=== PATIENT | female | born 1970 | race African-American/Black ===

== ENCOUNTER 2016-06-27 14:29 | Inpatient (IN) | payer MEDICAID, MEDICARE ==
[~2016-06-27] VITALS: Ht 175.3 cm; Wt 103.2 kg
[~2016-06-27 14:29] MED LIST: ALBU8HFA IH; ASPI-556 PO; CARI350 PO; CLON2 PO; HYDR-3971 PO; OXYC5 PO; PREG50 PO; SUMA25TA9 PO
[2016-06-27] MEDS ORDERED: IOVERSOL 350 MG/ML 100 ML VIAL ONE (14:36)
[2016-06-27] MEDS ORDERED: SODIUM CHLORIDE 0.9% 100 ML ONE (14:36)
[2016-06-27 14:52] LABS: BASOPHILS % (AUTO) 0.4 % (0.0-2.0); EOSINOPHILS % (AUTO) 5.3 % (1.0-6.0); LYMPHOCYTES # (AUTO) 5.3 K/uL (1.0-4.8); LYMPHOCYTES % (AUTO) 50.1 % (22.0-44.0); MEAN CORPUSCULAR HGB CONC 32.6 G/dL (31.0-37.0); MEAN CORPUSCULAR VOLUME 92 fL (80-100); MONOCYTES # (AUTO) 1.1 K/uL (0.1-1.0); MONOCYTES % (AUTO) 10.4 % (2.0-9.0); NEUTROPHILS # (AUTO) 3.6 K/uL (1.8-7.7); NEUTROPHILS % (AUTO) 33.8 % (40.0-70.0); PLATELET COUNT (AUTO) 259 K/uL (150-450); RED BLOOD CELL COUNT(AUTO) 4.35 MIL/uL (4.00-5.20); RED CELL DISTRIBUTION WIDTH 13.7 % (11.5-14.5); WHITE BLOOD COUNT (AUTO) 10.6 K/uL (4.5-11.0)
[2016-06-27 15:00] LABS: PROTHROMBIN TIME 10.3 SEC (9.4-11.6)
[2016-06-27] MEDS ORDERED: TOPI25 PO (15:00)
[2016-06-27] MEDS ORDERED: HYDR25TA PO (15:00)
[2016-06-27] MEDS ORDERED: HYD25 PO (15:00)
[2016-06-27 15:21] LABS: ANION GAP 10 mmol/L (8-16); CALCIUM, TOTAL 8.8 mg/dL (8.8-10.5); CARBON DIOXIDE 29 mmol/L (22-29); CHLORIDE 102 mmol/L (98-107); CREATININE 1.01 mg/dL (0.60-1.30); GLOMERULAR FILTR. RATE CALC > 60 mL/min (>60); POTASSIUM 3.2 mmol/L (3.5-5.1); SODIUM SERUM 141 mmol/L (136-145); UREA NITROGEN, BLOOD 16 mg/dL (7-18)
[2016-06-27 15:47] LABS: ALANINE AMINOTRANSFERASE 32 U/L (12-78); ALBUMIN 4.1 g/dL (3.4-5.0); ASPARTATE AMINOTRANSFERASE 20 U/L (15-37); BILIRUBIN,TOTAL 0.4 mg/dL (0.1-1.0); CREATINE KINASE, TOTAL 346 U/L (26-192); TOTAL PROTEIN, SERUM 7.3 g/dL (6.4-8.2)
[2016-06-27] MEDS ORDERED: ONDANSETRON HCL 4 MG/2 ML VIAL IVP ONE (16:45)
[2016-06-27] MEDS ORDERED: HYDROmorphone 2 MG/ML SYRINGE IVP ONE ×2 (16:45→18:45)
[2016-06-27] MEDS ORDERED: SUMA100T PO (16:55)
[2016-06-27] MEDS ORDERED: OXYC10IR PO (16:56)
[2016-06-27] MEDS ORDERED: SODIUM CHLORIDE 0.9% 1,000 ML IV ONE (17:00)
[2016-06-27] MEDS ORDERED: ASPIRIN 300 MG RECTAL SUPPOSITORY PR ONE (18:00)
[2016-06-27] MEDS ORDERED: SUMAtriptan SUCCINATE 6 MG/0.5 ML VIAL SQ ONE (20:30)
[2016-06-27] MEDS ORDERED: MAGNESIUM HYDROXIDE SUSPENSION 30 ML UDCUP PO PRN (20:45)
[2016-06-27] MEDS ORDERED: ACETAMINOPHEN 325 MG TABLET PO PRN (20:45)
[2016-06-27] MEDS: DOCUSATE SODIUM 100 MG CAPSULE PO SCH (20:49)
[2016-06-27] MEDS: SIMVASTATIN 40 MG TABLET PO SCH (21:00)
[2016-06-27] MEDS ORDERED: POTASSIUM CHL 10 MEQ/WATER 50 ML IV PRN (21:00)
[2016-06-27] MEDS ORDERED: POTASSIUM CHLORIDE 20 MEQ ER TABLET PO PRN (21:00)
[2016-06-27] MEDS ORDERED: GADOBUTROL 1 MMOL/ML 10 ML VIAL IVP ONE (21:15)
[2016-06-27] MEDS ORDERED: LORazepam 2 MG/ML VIAL ONE (21:22)
[2016-06-27] MEDS ORDERED: LORazepam 2 MG/ML VIAL IVP ONE (21:45)
[2016-06-27] MEDS: HEPARIN SODIUM,PORCINE 5,000 UNITS/ML VIAL SQ SCH (23:56)
[2016-06-28] MEDS: HYDROmorphone 2 MG/ML SYRINGE IVP SCH ×6 (01:32→23:50)
[2016-06-28] MEDS: HEPARIN SODIUM,PORCINE 5,000 UNITS/ML VIAL SQ SCH ×3 (08:26→23:49)
[2016-06-28] MEDS ORDERED: ASPIRIN 325 MG TABLET PO SCH (09:00)
[2016-06-28] MEDS: PANTOPRAZOLE SODIUM 40 MG DR TABLET PO SCH (09:24)
[2016-06-28 09:38] VITALS: BP 108/74
[2016-06-28] MEDS ORDERED: ADDE10 PO (13:43)
[2016-06-28] MEDS ORDERED: ALBU8HFA4 IH (13:43)
[2016-06-28] MEDS ORDERED: NAPR500T6 PO (13:43)
[2016-06-28] MEDS: HYDROCHLOROTHIAZIDE 25 MG TABLET PO SCH (14:45)
[2016-06-28] MEDS ORDERED: SUMAtriptan SUCCINATE 100 MG TABLET PO PRN (14:45)
[2016-06-28] MEDS ORDERED: OxyCODONE HCL 10 MG IR TABLET PO PRN (14:45)
[2016-06-28] MEDS: ClonazePAM 0.5 MG TABLET PO SCH ×2 (14:45→22:22)
[2016-06-28] MEDS ORDERED: HYDROCODONE/ACETAMINOPHEN 10-325 MG TABLET PO PRN (14:45)
[2016-06-28] MEDS ORDERED: ALBUTEROL SULFATE HFA 90 MCG/PUFF 8 GM INHALER IH PRN (14:45)
[2016-06-28] MEDS ORDERED: MORPHINE SULFATE 2 MG/ML SYRINGE ONE (14:49)
[2016-06-28] MEDS: OxyCODONE HCL/ACETAMINOPHEN 5-325 MG TABLET PO PRN (16:36)
[2016-06-28 18:05] VITALS: BP 113/78
[2016-06-28] MEDS: DOCUSATE SODIUM 100 MG CAPSULE PO SCH ×2 (20:20→21:00)
[2016-06-28] MEDS: AMPHETAMINE/DEXTROAMPHETAMINE 10 MG TABLET PO SCH (20:24)
[2016-06-28] MEDS: HydrOXYzine HCL 25 MG TABLET PO SCH (21:56)
[2016-06-28 23:14] VITALS: BP 111/67
[2016-06-28] MEDS: SIMVASTATIN 40 MG TABLET PO SCH (23:43)
[2016-06-29] MEDS ORDERED: INFLUENZA VIRUS VACCINE QVS 2016-17 (3YR+)/PF 60 MCG/0.5 ML SYRINGE IM ONE (02:15)
[2016-06-29] MEDS ORDERED: PNEUMOCOCCAL VACCINE POLYVALENT 0.5 ML VIAL [PPSV23] IM ONE (02:15)
[2016-06-29] MEDS: HYDROmorphone 2 MG/ML SYRINGE IVP SCH ×5 (04:29→23:54)
[2016-06-29 04:47] VITALS: BP 113/70
[2016-06-29 07:21] LABS: ANION GAP 4 mmol/L (8-16); CALCIUM, TOTAL 8.5 mg/dL (8.8-10.5); CARBON DIOXIDE 32 mmol/L (22-29); CHLORIDE 105 mmol/L (98-107); CREATININE 0.95 mg/dL (0.60-1.30); GLOMERULAR FILTR. RATE CALC > 60 mL/min (>60); POTASSIUM 4.2 mmol/L (3.5-5.1); SODIUM SERUM 141 mmol/L (136-145); UREA NITROGEN, BLOOD 10 mg/dL (7-18)
[2016-06-29 07:33] VITALS: BP 110/71
[2016-06-29] MEDS: HEPARIN SODIUM,PORCINE 5,000 UNITS/ML VIAL SQ SCH ×2 (08:43→23:54)
[2016-06-29] MEDS: ClonazePAM 0.5 MG TABLET PO SCH ×2 (08:44→19:59)
[2016-06-29] MEDS: HYDROCHLOROTHIAZIDE 25 MG TABLET PO SCH (08:44)
[2016-06-29] MEDS: PANTOPRAZOLE SODIUM 40 MG DR TABLET PO SCH (08:44)
[2016-06-29] MEDS: DOCUSATE SODIUM 100 MG CAPSULE PO SCH ×2 (08:44→19:58)
[2016-06-29] MEDS: ASPIRIN 81 MG EC TABLET PO SCH (08:44)
[2016-06-29] MEDS: AMPHETAMINE/DEXTROAMPHETAMINE 10 MG TABLET PO SCH ×2 (08:45→19:59)
[2016-06-29] MEDS: HydrOXYzine HCL 25 MG TABLET PO SCH ×2 (08:45→19:58)
[2016-06-29 11:57] VITALS: BP 111/69
[2016-06-29 16:08] VITALS: BP 104/66
[2016-06-29 19:39] VITALS: BP 109/69
[2016-06-29] MEDS: SIMVASTATIN 40 MG TABLET PO SCH (19:58)
[2016-06-30 00:15] VITALS: BP 104/62
[2016-06-30] MEDS: HYDROmorphone 2 MG/ML SYRINGE IVP SCH ×4 (04:21→16:00)
[2016-06-30 04:43] VITALS: BP 97/59
[2016-06-30 07:38] VITALS: BP 97/61
[2016-06-30] MEDS: AMPHETAMINE/DEXTROAMPHETAMINE 10 MG TABLET PO SCH (09:00)
[2016-06-30] MEDS: HYDROCHLOROTHIAZIDE 25 MG TABLET PO SCH (09:00)
[2016-06-30] MEDS: HEPARIN SODIUM,PORCINE 5,000 UNITS/ML VIAL SQ SCH ×2 (09:03→16:47)
[2016-06-30] MEDS: DOCUSATE SODIUM 100 MG CAPSULE PO SCH (09:04)
[2016-06-30] MEDS: HydrOXYzine HCL 25 MG TABLET PO SCH (09:04)
[2016-06-30] MEDS: ClonazePAM 0.5 MG TABLET PO SCH (09:05)
[2016-06-30] MEDS: ASPIRIN 81 MG EC TABLET PO SCH (09:05)
[2016-06-30] MEDS: PANTOPRAZOLE SODIUM 40 MG DR TABLET PO SCH (09:05)
[2016-06-30 11:28] VITALS: BP 101/60
[2016-06-30 15:43] VITALS: BP 116/68
[2016-06-30] MEDS ORDERED: SIMV-261 PO (16:26)
[2016-06-30] MEDS: OxyCODONE HCL/ACETAMINOPHEN 5-325 MG TABLET PO PRN (17:00)
== END 2016-06-30 17:20 | disposition home or self-care (01) | DRG 92 ==
LOC: EMS 14:31 → AHU 06-28 07:25 → 5N 06-28 23:00
PROVIDERS: ADMIT Internal Medicine; ATTEND Internal Medicine
DX: R47.01 Aphasia (principal); G90.521 Complex regional pain syndrome I of right lower limb; G43.109 Migraine with aura, not intractable, without status migrainosus; I10 Essential (primary) hypertension; E66.9 Obesity, unspecified; J44.9 Chronic obstructive pulmonary disease, unspecified; G43.809 Other migraine, not intractable, without status migrainosus; F15.90 Other stimulant use, unspecified, uncomplicated; F17.210 Nicotine dependence, cigarettes, uncomplicated; Z28.21 Immunization not carried out because of patient refusal; Z68.33 Body mass index [BMI] 33.0-33.9, adult; Z91.048 Other nonmedicinal substance allergy status; Z79.899 Other long term (current) drug therapy; Z79.82 Long term (current) use of aspirin; Z79.891 Long term (current) use of opiate analgesic; Z98.890 Other specified postprocedural states; Z90.722 Acquired absence of ovaries, bilateral; Z90.710 Acquired absence of both cervix and uterus; Z53.29 Procedure and treatment not carried out because of patient's decision for other reasons
CPT/HCPCS: 70496; 70544; 70553; 92507; 92523; 93005; 93306; 93880; 97161; 97166; 99285; A9585; J1170; J1644; J2060; J2270; J2405; J3030; J3535; J7050

== ENCOUNTER 2017-04-20 10:43 | Emergency (ER) | payer MEDICARE, OTHER ==
[~2017-04-20] VITALS: Ht 167.6 cm; Wt 102.2 kg
[~2017-04-20 10:43] MED LIST changes: +ADDE10 PO; -ALBU8HFA IH; +ALBU8HFA4 IH; -CARI350 PO; +HYD25 PO; +HYDR25TA PO; +NAPR500T6 PO; +OXYC10IR PO; -OXYC5 PO; -PREG50 PO; +SIMV-261 PO; +SUMA100T PO; -SUMA25TA9 PO
[2017-04-20] MEDS ORDERED: ALBU8HFA4 IH (10:54)
[2017-04-20] MEDS ORDERED: ONDANSETRON HCL 4 MG TABLET PO ONE (12:45)
[2017-04-20 13:54] VITALS: BP 106/73
== END 2017-04-20 14:44 | disposition home or self-care (01) ==
LOC: EMS 10:45
DX: J40 Bronchitis, not specified as acute or chronic (principal); B34.9 Viral infection, unspecified; M79.89 Other specified soft tissue disorders; R11.2 Nausea with vomiting, unspecified; G89.29 Other chronic pain; M79.1 Myalgia; F41.9 Anxiety disorder, unspecified; J44.9 Chronic obstructive pulmonary disease, unspecified; I10 Essential (primary) hypertension; G43.909 Migraine, unspecified, not intractable, without status migrainosus; F17.210 Nicotine dependence, cigarettes, uncomplicated; F12.90 Cannabis use, unspecified, uncomplicated; Z88.8 Allergy status to other drugs, medicaments and biological substances
CPT/HCPCS: 71046; 99284; Q0162

== ENCOUNTER 2017-06-03 14:04 | Emergency (ER) | payer MEDICARE, OTHER ==
[~2017-06-03] VITALS: Ht 177.8 cm; Wt 112.2 kg
[~2017-06-03 14:04] MED LIST changes: -ASPI-556 PO; -HYD25 PO; -HYDR-3971 PO; -NAPR500T6 PO; -SIMV-261 PO
[2017-06-03] MEDS ORDERED: CLON1TAB4 PO (14:11)
[2017-06-03] MEDS ORDERED: IBUP-2077 PO (14:11)
[2017-06-03] MEDS ORDERED: OXYC20TA79 PO (14:11)
[2017-06-03] MEDS ORDERED: ALBU8HFA IH (14:11)
[2017-06-03] MEDS ORDERED: GABA-531 PO (14:11)
[2017-06-03] MEDS ORDERED: SODIUM CHLORIDE 0.9% 100 ML ONE (14:17)
[2017-06-03] MEDS ORDERED: IOVERSOL 350 MG/ML 100 ML VIAL ONE (14:17)
[2017-06-03 14:18] LABS: BASOPHILS % (AUTO) 0.9 % (0.0-2.0); HEMATOCRIT 43.5 % (36-46); LYMPHOCYTES # (AUTO) 5.4 K/uL (1.0-4.8); LYMPHOCYTES % (AUTO) 53.8 % (22.0-44.0); MEAN CORPUSCULAR HEMOGLOBIN 30.8 pg (26.0-34.0); MEAN CORPUSCULAR HGB CONC 34.4 G/dL (31.0-37.0); MEAN CORPUSCULAR VOLUME 90 fL (80-100); MONOCYTES # (AUTO) 0.9 K/uL (0.1-1.0); MONOCYTES % (AUTO) 8.5 % (2.0-9.0); NEUTROPHILS # (AUTO) 3.5 K/uL (1.8-7.7); NEUTROPHILS % (AUTO) 34.8 % (40.0-70.0); PLATELET COUNT (AUTO) 288 K/uL (150-450); RED BLOOD CELL COUNT(AUTO) 4.86 MIL/uL (4.00-5.20); RED CELL DISTRIBUTION WIDTH 14.1 % (11.5-14.5)
[2017-06-03 14:29] LABS: INR 0.9 (0.9-1.1); PROTHROMBIN TIME 9.9 SEC (9.4-11.6)
[2017-06-03 14:33] LABS: ANION GAP 12 mmol/L (8-16); CALCIUM, TOTAL 9.3 mg/dL (8.8-10.5); CARBON DIOXIDE 27 mmol/L (22-29); CHLORIDE 101 mmol/L (98-107); GLOMERULAR FILTR. RATE CALC > 60 mL/min (>60); GLUCOSE,RANDOM 109 mg/dL (70-110); POTASSIUM 3.1 mmol/L (3.5-5.1); SODIUM SERUM 140 mmol/L (136-145); UREA NITROGEN, BLOOD 12 mg/dL (7-18)
[2017-06-03 14:58] LABS: ALANINE AMINOTRANSFERASE 35 U/L (12-78); ALKALINE PHOSPHATASE 104 U/L (46-116); ASPARTATE AMINOTRANSFERASE 23 U/L (15-37); BILIRUBIN,TOTAL 0.3 mg/dL (0.1-1.0); CREATINE KINASE MB 1.5 ng/mL (0-5); CREATINE KINASE, TOTAL 247 U/L (26-192); TOTAL PROTEIN, SERUM 8.1 g/dL (6.4-8.2)
[2017-06-03] MEDS ORDERED: ALTEPLASE PER STROKE PROTOCOL CLINICAL ONE (15:15)
[2017-06-03] MEDS ORDERED: ALTEPLASE 9 MG in WATER FOR INJECTION,STERILE 9 ML IV ONE (15:30)
[2017-06-03] MEDS ORDERED: ALTEPLASE 81 MG in WATER FOR INJECTION,STERILE 81 ML IV ONE (15:30)
[2017-06-03 15:41] LABS: APPEARANCE,URINE CLEAR (CLEAR); BILIRUBIN,URINE NEGATIVE (NEGATIVE); GLUCOSE, URINE (UA) NEGATIVE (NEGATIVE); KETONES,URINE NEGATIVE (NEGATIVE); LEUKOCYTE ESTERASE ,URINE NEGATIVE (NEGATIVE); NITRATE,URINE NEGATIVE (NEGATIVE); OCCULT BLOOD,URINE NEGATIVE (NEGATIVE); PH,URINE 6.5 (5.0-8.0); PROTEIN,URINE NEGATIVE (NEGATIVE); UROBILINOGEN,URINE 0.2 mg/dL (<=1.0)
[2017-06-03 16:33] LABS: AMPHET/METH SCREEN,URINE NEGATIVE (NEGATIVE); BARBITURATE SCREEN, URINE NEGATIVE (NEGATIVE); BENZODIAZEPINES SCREEN,URINE NEGATIVE (NEGATIVE); CANNABINOID SCREEN,URINE NEGATIVE (NEGATIVE); COCAINE SCREEN,URINE NEGATIVE (NEGATIVE); METHADONE SCREEN, URINE NEGATIVE (NEGATIVE); OPIATE SCREEN,URINE POSITIVE (NEGATIVE); PHENCYCLIDINE SCREEN,URINE NEGATIVE (NEGATIVE)
[2017-06-03] MEDS ORDERED: ACETAMINOPHEN 1000 MG/ISO-OSM 100 ML IV ONE (17:15)
[2017-06-03] MEDS ORDERED: ACETAMINOPHEN 500 MG/ISO-OSM 50 ML IV ONE (17:15)
[2017-06-03 17:28] VITALS: BP 132/73
[2017-06-03] MEDS ORDERED: ONDANSETRON HCL 4 MG/2 ML VIAL IVP ONE (17:30)
== END 2017-06-03 18:38 | disposition short-term general hospital (02) ==
LOC: EMS 14:06
DX: I63.9 Cerebral infarction, unspecified (principal); R53.1 Weakness; I10 Essential (primary) hypertension; J44.9 Chronic obstructive pulmonary disease, unspecified; F12.90 Cannabis use, unspecified, uncomplicated; F17.210 Nicotine dependence, cigarettes, uncomplicated; Z88.8 Allergy status to other drugs, medicaments and biological substances
CPT/HCPCS: 36415; 37195; 70450; 70496; 71045; 80053; 80307; 81003; 82550; 82553; 84484; 85025; 85610; 85730; 93005; 96365; 96374; 99291; J0131; J2405; J2997; J7050; Q9967